=== PATIENT | female | born 1990 | race Caucasian/White ===

== ENCOUNTER 2018-01-06 18:27 | Inpatient (IN) | payer BC ==
[~2018-01-06] VITALS: Ht 162.6 cm; Wt 89.5 kg
[2018-01-06] VITALS (17 sets, daily range): BP systolic 95–129; BP diastolic 52–78; PULSE 67–86; TEMP 98.3–98.5
[~2018-01-06 18:27] MED LIST: SPRINTEC 35 MCG1 TAB PO
[2018-01-06] MEDS ORDERED: PRENATAL MVI PO (18:49)
[2018-01-06] MEDS ORDERED: NATURAL IRON65 MG PO (18:50)
[2018-01-06] MEDS ORDERED: CALCIUM CARBON650 M2 PO (18:50)
[2018-01-06] MEDS ORDERED: STOOL SOFTENER100 M2 PO (18:51)
[2018-01-06 20:22] LABS: BASO % 0.2 % (0.0-2.0); EOS # 0.1 (0.0-0.7); EOS % 0.9 % (0-4.0); GRAN # 9.3 (1.4-6.5); GRAN % 72.9 % (42.2-75.2); HEMATOCRIT 37.5 % (37.0-47.0); HEMOGLOBIN 12.5 g/dl (12.5-16.0); LYMPH % 15.8 % (20.0-51.0); MEAN CELL VOLUME 85 fl (80.0-100.0); MEAN CORPUSCULAR HEMOGLOBIN 28 pg (27.0-31.0); MEAN CORPUSCULAR HGB CONC 33 g/dl (33.0-37.0); MEAN PLATELET VOLUME 9.9 fl (7.4-10.4); MONO # 1.1 (0.1-0.6); MONO % 8.9 % (1.7-9.3); PLATELET COUNT 216 K/mm3 (130-400); RED BLOOD COUNT 4.44 M/mm3 (4.10-5.30); REDCELL DISTRIBUTION WIDTH-CV 18.9 % (11.5-14.5)
[2018-01-07] VITALS (93 sets, daily range): BP systolic 91–161; BP diastolic 45–92; PULSE 60–116; TEMP 97.9–99
[2018-01-08] VITALS: BP 116/64; PULSE 86; TEMP 98.6
[2018-01-08 04:00] VITALS: BP 110/67; PULSE 77; TEMP 98
[2018-01-08 07:40] VITALS: BP 105/65; PULSE 85; TEMP 98
[2018-01-08 09:31] LABS: HEMOGLOBIN 9.2 g/dl (12.5-16.0)
[2018-01-08 11:30] VITALS: BP 113/64; PULSE 106; TEMP 98.5
[2018-01-08] MEDS ORDERED: PERCOCET 325 MG1 TA2 PO (12:54)
[2018-01-08] MEDS ORDERED: MOTRIN 800800 MG/TAB PO (12:54)
[2018-01-08 15:40] VITALS: BP 119/62; PULSE 101; TEMP 97.2
[2018-01-08 22:05] VITALS: BP 111/50; PULSE 92; TEMP 97.6
[2018-01-09 08:45] VITALS: BP 126/64; PULSE 98; TEMP 98.3
[2018-01-09 16:52] VITALS: BP 126/65; PULSE 99; TEMP 99
[2018-01-09 21:37] VITALS: BP 120/71; PULSE 100; TEMP 98
[2018-01-10 09:30] VITALS: BP 118/52; PULSE 86; TEMP 98
== END 2018-01-10 11:45 | disposition home or self-care (01) | DRG 766 ==
LOC: LDRO 18:27 → LDR 19:14 → OB 01-07 20:36 → LDR 01-19 06:04 → EDSTATUS 01-19 06:05
PROVIDERS: Obstetrics & Gynecology
PROC: 3E033VJ Introduction of Other Hormone into Peripheral Vein, Percutaneous Approach (ICD-10-PCS; 2018-01-06)
PROC: 10D00Z1 Extraction of Products of Conception, Low, Open Approach (ICD-10-PCS; principal; 2018-01-07)
DX: O32.4XX0 Maternal care for high head at term, not applicable or unspecified (principal); O63.1 Prolonged second stage (of labor); Z3A.38 38 weeks gestation of pregnancy; Z37.0 Single live birth; O62.2 Other uterine inertia; O99.02 Anemia complicating childbirth
CPT/HCPCS: J0690; J1885; J2210; J2270; J2370; J2405; J2590; J7120

== ENCOUNTER → 2019-08-21 | Outpatient (CLI) | payer BC ==
[~2019-08-21] MED LIST changes: +CALCIUM CARBON650 M2 PO; +MOTRIN 800800 MG/TAB PO; +NATURAL IRON65 MG PO; +PERCOCET 325 MG1 TA2 PO; +PRENATAL MVI PO; +STOOL SOFTENER100 M2 PO
== END ==
LOC: COL.CARD 07:33
DX: R00.2 Palpitations (principal)

== ENCOUNTER → 2019-09-26 | Outpatient (CLI) | payer BC | LOC: ZCOL.LAB 10:47 | DX: R07.1 Chest pain on breathing (principal) ==

== ENCOUNTER → 2019-09-26 | Outpatient (CLI) | payer BC | LOC: COL.RAD 12:54 | DX: J90 Pleural effusion, not elsewhere classified (principal); J98.59 Other diseases of mediastinum, not elsewhere classified; R79.89 Other specified abnormal findings of blood chemistry | CPT/HCPCS: Q9967 ==

== ENCOUNTER → 2020-02-06 | Outpatient (CLI) | payer BC ==
[2020-02-06 10:36] LABS: ALBUMIN 4.7 gm/dL (3.5-5.0); CALCIUM 9.4 mg/dL (8.4-10.2); CREATININE, serum 0.71 (0.52-1.25); POTASSIUM 4.3 mmol/L (3.4-5.0); TOTAL PROTEIN 8.6 gm/dL (6.4-8.2)
[2020-02-06 10:37] LABS: BASO % 0.4 % (0.0-2.0); EOS # 0.2 (0.0-0.7); EOS % 2.3 % (0-4.0); GRAN # 4.7 (1.4-6.5); GRAN % 66.3 % (42.2-75.2); HEMATOCRIT 42.6 % (37.0-47.0); HEMOGLOBIN 14.1 g/dl (12.5-16.0); LYMPH # 1.6 (1.2-3.4); LYMPH % 23.2 % (20.0-51.0); MEAN CELL VOLUME 84 fl (80.0-100.0); MEAN CORPUSCULAR HEMOGLOBIN 28 pg (27.0-31.0); MEAN CORPUSCULAR HGB CONC 33 g/dl (33.0-37.0); MEAN PLATELET VOLUME 9.8 fl (7.4-10.4); MONO # 0.5 (0.1-0.6); MONO % 7.5 % (1.7-9.3); PLATELET COUNT 276 K/mm3 (130-400); RED BLOOD COUNT 5.05 M/mm3 (4.10-5.30); REDCELL DISTRIBUTION WIDTH-CV 12.8 % (11.5-14.5)
== END ==
LOC: COL.LAB 10:04
PROVIDERS: Nurse Practitioner
DX: J98.59 Other diseases of mediastinum, not elsewhere classified (principal); B39.9 Histoplasmosis, unspecified

== ENCOUNTER → 2020-04-09 | Outpatient (CLI) | payer BC | LOC: ZCOL.LAB 14:46 | DX: J98.59 Other diseases of mediastinum, not elsewhere classified (principal); B39.9 Histoplasmosis, unspecified ==

== ENCOUNTER → 2020-04-10 | Outpatient (CLI) | payer BC ==
[2020-04-10 11:18] LABS: BASO % 0.5 % (0.0-2.0); EOS # 0.2 (0.0-0.7); EOS % 2.6 % (0-4.0); GRAN # 3.9 (1.4-6.5); GRAN % 60.5 % (42.2-75.2); HEMATOCRIT 41.6 % (37.0-47.0); LYMPH # 1.7 (1.2-3.4); LYMPH % 26.2 % (20.0-51.0); MEAN CELL VOLUME 85 fl (80.0-100.0); MEAN CORPUSCULAR HEMOGLOBIN 29 pg (27.0-31.0); MEAN CORPUSCULAR HGB CONC 34 g/dl (33.0-37.0); MEAN PLATELET VOLUME 9.9 fl (7.4-10.4); MONO # 0.7 (0.1-0.6); PLATELET COUNT 274 K/mm3 (130-400); RED BLOOD COUNT 4.88 M/mm3 (4.10-5.30); REDCELL DISTRIBUTION WIDTH-CV 12.5 % (11.5-14.5)
[2020-04-10 11:21] LABS: ALANINE AMINOTRANSFERASE 9 U/L (4-34); ALKALINE PHOSPHATASE 56 U/L (50-136); ANION GAP 10 mmol/L (7-16); AST,SGOT 18 U/L (15-37); BILIRUBIN,TOTAL 1.7 mg/dL (0.0-1.0); BLOOD UREA NITROGEN 13 mg/dL (7-17); CALCIUM 9.5 mg/dL (8.4-10.2); CARBON DIOXIDE 26 mmol/L (22-30); CHLORIDE 104 mmol/L (98-107); CREATININE, serum 0.67 (0.52-1.25); GLUCOSE 84 mg/dL (74-106); POTASSIUM 4.2 mmol/L (3.4-5.0); SODIUM 140 mmol/L (137-145); TOTAL PROTEIN 8.6 gm/dL (6.4-8.2)
[2020-04-10 11:22] LABS: C-REACTIVE PROTEIN < 0.5 mg/dL (0.0-0.9)
[2020-04-10 12:35] LABS: ERYTHROCYTE SEDIMENTATION RATE 2 mm/hr (0-20)
== END ==
LOC: COL.LAB 10:33
PROVIDERS: Nurse Practitioner
DX: B39.9 Histoplasmosis, unspecified (principal); J98.59 Other diseases of mediastinum, not elsewhere classified; R93.89 Abnormal findings on diagnostic imaging of other specified body structures

== ENCOUNTER → 2020-05-04 | Outpatient (CLI) | payer BC | LOC: ZCOL.LAB 15:50 | DX: B39.9 Histoplasmosis, unspecified (principal); J98.59 Other diseases of mediastinum, not elsewhere classified ==

== ENCOUNTER → 2020-05-07 | Outpatient (CLI) | payer BC | LOC: COL.RAD 12:31 | DX: B39.9 Histoplasmosis, unspecified (principal); J98.59 Other diseases of mediastinum, not elsewhere classified; E04.1 Nontoxic single thyroid nodule; R93.89 Abnormal findings on diagnostic imaging of other specified body structures; Z98.890 Other specified postprocedural states | CPT/HCPCS: Q9967 ==

== ENCOUNTER → 2020-05-28 | Outpatient (CLI) | payer BC ==
[~2020-05-28] VITALS: Ht 162.6 cm; Wt 63.4 kg
[~2020-05-28] MED LIST changes: +ADDERALL15 MG PO; +VALIUM 5MG T5 MG/TAB PO
[2020-05-28 13:06] VITALS: BP 127/79; PULSE 69
[2020-05-28 14:50] VITALS: BP 139/81; PULSE 62
== END ==
LOC: COL.RAD 12:49
DX: E04.1 Nontoxic single thyroid nodule (principal)

== ENCOUNTER 2021-11-28 15:19 | Outpatient (CLI) | payer BC ==
[~2021-11-28] VITALS: Ht 162.6 cm; Wt 96.4 kg
--- NOTE | 2021-11-28 15:25 | NUR ---
484338.6, G3L1 arrives on unit with c/o of leaking vaginal fluids at 1300. Denies any VB or regular contractions. Reports normal movement, and josé silva. Ambulatory to LDR5. Changes into clean gown. 1528EFM explained and placed. VS obtained and assessment completed. 1535Amnitest negative. SVE CL/TH/HI. Plan of care reviewed with patient and spouse who verbalize understanding. 1552 Dr. Roles updated on pt. See physician notification. 1553EFM off and patient up to bathroom to change. 1605Discharge instructions reviewed with patient and spouse who verbalize understanding. Ambulatory off unit.
[2021-11-28 15:30] VITALS: BP 135/81; PULSE 80; TEMP 98.6
[2021-11-28] MEDS ORDERED: PRENATAL TABLET PO (15:46)
[2021-11-28 15:53] VITALS: BP 119/73; PULSE 82
== END 2021-11-28 16:05 | disposition home or self-care (01) ==
LOC: LDRO 15:19
DX: Z34.90 Encounter for supervision of normal pregnancy, unspecified, unspecified trimester (principal); Z3A.00 Weeks of gestation of pregnancy not specified

== ENCOUNTER 2021-12-05 17:47 | Inpatient (IN) | payer BC ==
[~2021-12-05] VITALS: Ht 162.6 cm; Wt 96.4 kg
[2021-12-05] VITALS (17 sets, daily range): BP systolic 103–143; BP diastolic 55–92; PULSE 65–765; TEMP 98.8
[~2021-12-05 17:47] MED LIST changes: +PRENATAL TABLET PO
--- NOTE | 2021-12-05 17:58 | NUR ---
Pt arrived on unit for concerns with contractions every 10 minutes for the last couple hours. Pt denies any leaking of fluid or vaginal bleeding and reports normal movement. EFM and toco monitors started. Vital signs WNL. SVE done by this RN /-3 with small amount of bloody show noted on exam glove.
[2021-12-05 19:29] LABS: BASO % 0.3 % (0.0-2.0); EOS # 0.1 K/mm3 (0.0-0.7); EOS % 0.9 % (0.0-4.0); GRAN # 8.1 K/mm3 (1.4-6.5); GRAN % 70.1 % (42.2-75.2); HEMOGLOBIN 12.2 g/dl (12.5-16.0); LYMPH # 2.1 K/mm3 (1.2-3.4); LYMPH % 17.7 % (20.0-51.0); MEAN CELL VOLUME 86 fl (80.0-100.0); MEAN CORPUSCULAR HEMOGLOBIN 28 pg (27-31); MEAN CORPUSCULAR HGB CONC 33 g/dl (33.0-37.0); MEAN PLATELET VOLUME 10.4 fl (7.4-10.4); MONO # 1.1 K/mm3 (0.1-0.6); MONO % 9.7 % (1.7-9.3); PLATELET COUNT 200 K/mm3 (130-400); RED BLOOD COUNT 4.32 M/mm3 (4.10-5.30); REDCELL DISTRIBUTION WIDTH-CV 13.9 % (11.5-14.5)
--- NOTE | 2021-12-05 19:30 | NUR ---
192- MONS CLIPPED AND ABDOMEN SCRUB COMPLETED. 1926- Lio DACOSTA CRNA IN ROOM TO DISCUSS SPINAL WITH PT. 1927- DR. NGUYỄN IN ROOM TO DISCUSS REPEAT C/S WITH PT.
--- NOTE | 2021-12-05 19:42 | NUR ---
MONITORING DC'D, PT AMBULATES TO OR FOR UNSCHEDULED REPEAT C/S.
[2021-12-06 00:45] VITALS: BP 125/66; PULSE 68
[2021-12-06 01:45] VITALS: BP 119/63; PULSE 64; TEMP 98
[2021-12-06 08:00] VITALS: BP 110/62; PULSE 61; TEMP 98
[2021-12-06] MEDS ORDERED: MOTRIN 800800 MG/TAB PO (08:07)
[2021-12-06] MEDS ORDERED: PERCOCET 325 MG1 TA2 PO (08:07)
[2021-12-06 11:45] VITALS: BP 108/63; PULSE 93; TEMP 98.4
[2021-12-06 16:30] VITALS: BP 124/72; PULSE 72; TEMP 98.2
[2021-12-06 20:30] VITALS: BP 123/63; PULSE 90; TEMP 98.2
[2021-12-07 07:52] VITALS: BP 112/66; PULSE 76; TEMP 97.9
[2021-12-07 16:10] VITALS: BP 122/76; PULSE 80; TEMP 97.7
== END 2021-12-07 17:45 | disposition home or self-care (01) | DRG 788 ==
LOC: LDRO 17:47 → LDR 18:26 → LDRO 19:10 → OB 19:11 → LDR 19:11 → OB 21:40
PROVIDERS: Student in an Organized Health Care Education/Training Program; ADMIT Obstetrics & Gynecology
PROC: 10D00Z1 Extraction of Products of Conception, Low, Open Approach (ICD-10-PCS; principal; 2021-12-05)
PROC: 0UN90ZZ Release Uterus, Open Approach (ICD-10-PCS; 2021-12-05)
PROC: 3E0P05Z Introduction of Adhesion Barrier into Female Reproductive, Open Approach (ICD-10-PCS; 2021-12-05)
DX: O34.211 Maternal care for low transverse scar from previous cesarean delivery (principal); O99.02 Anemia complicating childbirth; D64.9 Anemia, unspecified; O99.344 Other mental disorders complicating childbirth; F90.9 Attention-deficit hyperactivity disorder, unspecified type; O99.892 Other specified diseases and conditions complicating childbirth; N73.6 Female pelvic peritoneal adhesions (postinfective); O32.1XX0 Maternal care for breech presentation, not applicable or unspecified; Z3A.38 38 weeks gestation of pregnancy; Z37.0 Single live birth
CPT/HCPCS: J0690; J1100; J1885; J2405; J2590; J7120